=== PATIENT | female | born 1955 | race Caucasian/White ===

== ENCOUNTER 2021-04-18 12:58 | Emergency (ER) | payer MEDICARE, BC ==
[~2021-04-18] VITALS: Ht 170.2 cm; Wt 59.0 kg
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
[2021-04-18] MEDS ORDERED: IBUPROFEN 600 MG TABLET PO ONE (13:30)
[2021-04-18] MEDS ORDERED: IBUPROFEN 600 MG TABLET ONE (13:33)
--- NOTE | 2021-04-18 13:47 | NUR ---
Right posterior short leg splint applied at this time
--- NOTE | 2021-04-18 14:17 | NUR ---
Patient discharged to home in stable condition. Proper use of crutches given. Written and verbal after care instructions given. Patient verbalizes understanding of instructions. Stressed follow up or return to ER for worsening s/s.
[2021-04-18 14:18] VITALS: BP 148/74
== END 2021-04-18 14:18 | disposition home or self-care (01) ==
LOC: ER 13:02
DX: S82.841A Displaced bimalleolar fracture of right lower leg, initial encounter for closed fracture (principal); V29.88XA Motorcycle rider (driver) (passenger) injured in other specified transport accidents, initial encounter; Y92.410 Unspecified street and highway as the place of occurrence of the external cause; R03.0 Elevated blood-pressure reading, without diagnosis of hypertension
CPT/HCPCS: 73610; A4663